=== PATIENT | male | born 2000 | race Caucasian/White ===

== ENCOUNTER 2020-06-15 14:05 | Emergency (ER) | payer OTHER ==
[2020-06-15 14:09] VITALS: BP 130/83; PULSE 79; RESP 16; TEMP 98.2
[2020-06-15] MEDS ORDERED: KETOROLAC 15 MG/ML 1 ML VIAL IM STA (14:21)
--- NOTE | 2020-06-15 14:24 | ED ---
General Adult HPI - General Chief complaint: Back Pain/Injury Stated complaint: [facility]-back injury Time Seen by Provider: 06/15/20 14:05 Source: patient, RN notes reviewed, old records reviewed Mode of arrival: ambulatory Limitations: no limitations - History of Present Illness Initial comments: This is a 19-year-old male who presents emergency Department complaining of some lower back pain. Patient states he picked up something heavy at work and then the pain was on both sides of his spine but nothing in the center. Patient denies any numbness weakness. Patient denies any shooting pain down either leg. Patient states the pain only hurts when he bends or twists. Patient did not take anything prior to arrival. Patient states sitting still it feels fine. - Related Data Previous Rx's Medication Instructions Recorded Cyclobenzaprine [Flexeril] 10 mg PO DAILY #4 tab 06/15/20 Ibuprofen [Motrin] 600 mg PO Q6HR PRN #20 tab 06/15/20 Allergies Allergy/AdvReac Type Severity Reaction Status Date / Time No Known Allergies Allergy Verified 06/15/20 14:09 Review of Systems ROS Statement: Those systems with pertinent positive or pertinent negative responses have been documented in the HPI. ROS Other: All systems not noted in ROS Statement are negative. Past Medical History Past Medical History: No Reported History History of Any Multi-Drug Resistant Organisms: None Reported Past Surgical History: No Surgical Hx Reported Past Psychological History: No Psychological Hx Reported Smoking Status: Never smoker Past Alcohol Use History: None Reported Past Drug Use History: None Reported General Exam - General Exam Comments Initial Comments: GENERAL Patient is well-developed and well-nourished. Patient is in mild distress. EYES Patient's pupils are equal and round. Extraocular motion is intact SKIN Unremarkable NEURO The patient is alert and oriented 3. Patient has no numbness weakness of lower extremities. PYSCH Patient has normal interpersonal interactions. MUSCULOSKELETAL Patient has full range motion of all 4 extremities. Straight leg test is negative bilaterally. Limitations: no limitations Course Vital Signs 06/15/20 14:05 Temperature 98.2 F Pulse Rate 79 Respiratory 16 Rate Blood Pressure 130/83 O2 Sat by Pulse 99 Oximetry Medical Decision Making - Medical Decision Making Patient received a shot of Toradol. Disposition Clinical Impression: Strain of lumbar region Disposition: HOME SELF-CARE Condition: Good Instructions (If sedation given, give patient instructions): Low Back Strain (ED) Prescriptions: Cyclobenzaprine [Flexeril] 10 mg PO DAILY #4 tab Ibuprofen [Motrin] 600 mg PO Q6HR PRN #20 tab PRN Reason: For pain Is patient prescribed a controlled substance at d/c from ED?: No Referrals: None,Stated [Primary Care Provider] - 1-2 days Time of Disposition: 14:23
== END 2020-06-15 14:49 | disposition home or self-care (01) ==
LOC: EC 14:05
DX: S39.012A Strain of muscle, fascia and tendon of lower back, initial encounter (principal); R06.03 Acute respiratory distress; X50.0XXA Overexertion from strenuous movement or load, initial encounter; Y93.89 Activity, other specified; Y92.69 Other specified industrial and construction area as the place of occurrence of the external cause; Y99.0 Civilian activity done for income or pay
CPT/HCPCS: 99283; 96372; J1885